=== PATIENT | female | born 1975 | race Caucasian/White ===

== ENCOUNTER 2021-11-03 08:56 | Outpatient (CLI) | payer OTHER, SELFPAY ==
[2021-11-03 12:51] LABS: SARS-CoV-2 Ag Negative (Negative)
== END 2021-11-03 08:57 | disposition home or self-care (01) ==
LOC: CHSLAB 09:01
PROVIDERS: PCP Family Medicine; Visit Provider Family Medicine
DX: R51.9 Headache, unspecified (principal); R53.83 Other fatigue; Z20.822 Contact with and (suspected) exposure to COVID-19
CPT/HCPCS: 87426; C9803